=== PATIENT | female | born 1975 | race Caucasian/White ===

== ENCOUNTER 2019-02-11 12:53 | Emergency (ER) | payer OTHER ==
[2019-02-11 13:24] VITALS: BP 120/88; PULSE 88; TEMP 98; BMI 20.3
[2019-02-11] MEDS ORDERED: LIDOCAINE 5% TOPICAL PATCH TP ONE (13:49)
[2019-02-11] MEDS ORDERED: LIDOCAINE 5% TOPICAL PATCH ONE (13:52)
--- NOTE | 2019-02-11 13:54 | PDOC ---
Attending Attestation - Resident Resident Name: ChaparritaBryanna - ED Attending Attestation I have performed the following: I have examined & evaluated the patient, The case was reviewed & discussed with the resident, I agree w/resident's findings & plan - HPI HPI: 02/11/19 13:50 43 YOF with right shoulder pain x 1 day, worse with movement of her arm. she was holding door, when she slipped on wet leaves, pulled and felt a "popping " sensation. since then, minimally able to fully range her shoulder went to urgent care yesterday, xray unremarkable. has taken some ibuprofen with no relief. no weakness or paresthesias, AMS, head injury or LOC, CP, SOB or abdominal pain - Physicial Exam PE: 02/11/19 13:52 physical exam General: NAD, well appearing Resp: no respiratory distress, breathing comfortable on RA Abdomen: soft, no tenderness, nondistended Vascular: 2+ DP pulses symmetric and equal. Back: no midline tenderness, no stepoffs, FROM MSK: notable for soft compartments, Cap refill <2 sec. Proximal and distal strength 5/5, sweep press operator strength 5/5 - equal and symmetric. Plantar flexion and dorsiflexion 5/5. FROM. Sensation grossly intact to light touch. shoulder abduction/adduction/flexion/extension intact passively and prox strength 5/5 actively against resistance. 5/5 shoulder shrug strength. deltoid sensation intact; sensation grossly intact in median/radial/ulnar distribution. distal sweep press operator strength 5/5. 2+ radialis pulses bilaterally and symmetric. +very tender to palp over right upper shoulder, to supraspinatus muscle no crepitus or shoulder joint laxity. no ac joint tenderness. Neuro: alert, no focal neurologic deficits Skin: color normal color, warm and well perfused. Cap refill <2 sec. 02/11/19 13:53 - Medical Decision Making 02/11/19 13:52 MSK injury: \\ Vital Signs Temp Pulse Resp BP Pulse Ox 98.0 F 88 15 120/88 100 02/11/19 12:55 02/11/19 12:55 02/11/19 12:55 02/11/19 12:55 02/11/19 12:55 VS reviewed, wnl given analgesia here, reassess Xray rt shoulder normal joint space alignment, no acute fx or dislocation. CT shoulder given severe pain, eval for occult fx/AC separation and injury pattern, dislocation CT upper extremity negative for occult fracture, shoulder dislocation or acute pathology, there is mild degenerative arthritic changes in the AC joint. No soft tissue masses or fluid collection is noted, further evaluation for rotator cuff injury if symptoms persist with outpatient MRI/orthopedics referrals. Discussed results with patient. Rest ice and elevation. Pain control with OTC meds including motrin/tylenol as needed every 6 hours; no narcotics needed. Ortho followup provided for suspected rotator cuff injury. precautions given to avoid frozen shoulder, ROM exercises as tolerated. sling for comfort.. Please return to ED for increased pain, weakness, numbness/tingling, skin color changes 02/11/19 15:24 02/11/19 15:32
--- NOTE | 2019-02-11 14:42 | PDOC ---
History of Present Illness <Dolores Villatoro - Last Filed: 02/11/19 15:33> - General History Source: Patient Exam Limitations: No Limitations - History of Present Illness Initial Comments: 02/11/19 14:39 43y F with no significant PMH presenting to ED with complaints of R shoulder pain. Pt states that yesterday she was getting out of her car and almost slipped on the leaves outside. She grabbed on to the door and felt herself twist and immediately developed pain. She went to [facility] urgent care, got an xray which was negative for fracture. She was advised to follow up with ortho ( she has an appointment next Friday with Dr. Nguyễn?) and to take ibuprofen. Patient states that the pain is intense, she cannot find a comfortable position for her arm and is unable to sleep. Denies numbness/tingling, weakness, head injury, LOC. Allergies: epinepherine, Vicodin (vomiting). <Bryanna Cheatham - Last Filed: 02/11/19 15:47> - General Chief Complaint: Pain Stated Complaint: RIGHT SHOULDER/BACK PAIN Time Seen by Provider: 02/11/19 12:57 Past History <Dolores Villatoro - Last Filed: 02/11/19 15:33> - Past Medical History COPD: No - Immunization History Immunization Up to Date: Yes - Psycho Social/Smoking Cessation Hx Smoking History: Current some day smoker Have you smoked in the past 12 months: Yes Number of Cigarettes Smoked Daily: 0 Information on smoking cessation initiated: Yes 'Breaking Loose' booklet given: 04/16/13 Hx Alcohol Use: Yes (SOCIAL) Drug/Substance Use Hx: No Substance Use Type: None <Bryanna Cheatham - Last Filed: 02/11/19 15:47> - Past Medical History Allergies/Adverse Reactions: Allergies Allergy/AdvReac Type Severity Reaction Status Date / Time epinephrine Allergy Verified 02/11/19 13:02 hydrocodone AdvReac Severe Vomiting Verified 02/11/19 13:02 codeine AdvReac Vomiting Verified 02/11/19 13:02 Home Medications: Ambulatory Orders Cyclobenzaprine HCl 5 mg PO HS PRN 02/11/19 Ibuprofen 600 mg PO QID PRN #20 tablet 02/11/19 Oxycodone HCl 10 mg PO QID PRN #12 tablet MDD 4 02/11/19 Review of Systems - Review of Systems Constitutional: No: Symptoms Reported HEENTM: No: Symptoms Reported Respiratory: No: Symptoms reported Cardiac (ROS): No: Symptoms Reported ABD/GI: No: Symptoms Reported Musculoskeletal: Yes: See HPI Integumentary: No: Symptoms Reported Neurological: No: Numbness, Tingling, Weakness <Bryanna Cheatham - Last Filed: 02/11/19 15:47> *Physical Exam - Vital Signs Last Vital Signs Temp Pulse Resp BP Pulse Ox 98.0 F 88 15 120/88 100 02/11/19 12:55 02/11/19 12:55 02/11/19 12:55 02/11/19 12:55 02/11/19 12:55 <Dolores Villatoro - Last Filed: 02/11/19 15:33> - Vital Signs Last Vital Signs Temp Pulse Resp BP Pulse Ox 98.0 F 88 15 120/88 100 02/11/19 12:55 02/11/19 12:55 02/11/19 12:55 02/11/19 12:55 02/11/19 12:55 - Physical Exam General Appearance: Yes: Nourished, Appropriately Dressed, Moderate Distress HEENT: positive: EOMI, PAUL Respiratory/Chest: positive: Lungs Clear, Normal Breath Sounds. negative: Crackles, Rales, Rhonchi, Stridor, Wheezing Cardiovascular: positive: Regular Rhythm, Regular Rate, S1, S2. negative: Edema , JVD, Murmur Comments:: 02/11/19 15:41 radial pulses 2+ Musculoskeletal: positive: Decreased Range of Motion (R shoulder with decreased ROM with extension, adduction, abduction, flextion. TTP superior aspect of shoulder). negative: Vertebral Tenderness Extremity: positive: Normal Capillary Refill Integumentary: positive: Normal Color, Dry, Warm Neurologic: positive: gizzard peeler II-XII NML intact, Fully Oriented, Alert, Normal Mood/ Affect, Normal Response, Motor Strength 5/5 <Bryanna Cheatham - Last Filed: 02/11/19 15:47> ED Treatment Course - RADIOLOGY Radiology Studies Ordered: Category Date Time Status UPPER EXTREMITY CT W/O CONTR [CT] Stat CT Scan 02/11/19 13:49 Completed SHOULDER-RIGHT [RAD] Stat Radiology 02/11/19 13:05 Taken - Medications Given in the ED: ED Medications Discontinued Medications Generic Name Dose Route Start Last Admin Trade Name Freq PRN Reason Stop Dose Admin Lidocaine 1 patch 02/11/19 13:49 02/11/19 13:56 Lidoderm Patch - TP 02/11/19 13:50 1 patch ONCE ONE Administration Oxycodone/Acetaminophen 1 combo 02/11/19 13:06 02/11/19 13:18 Percocet 5/325 - PO 02/11/19 13:07 1 combo ONCE ONE Administration <Dolores Villatoro - Last Filed: 02/11/19 15:33> - Medications Given in the ED: ED Medications Discontinued Medications Generic Name Dose Route Start Last Admin Trade Name Freq PRN Reason Stop Dose Admin Lidocaine 1 patch 02/11/19 13:49 02/11/19 13:56 Lidoderm Patch - TP 02/11/19 13:50 1 patch ONCE ONE Administration Oxycodone/Acetaminophen 1 combo 02/11/19 13:06 02/11/19 13:18 Percocet 5/325 - PO 02/11/19 13:07 1 combo ONCE ONE Administration <Bryanna Cheatham - Last Filed: 02/11/19 15:47> Medical Decision Making - Medical Decision Making 02/11/19 15:42 43y F presenting with R shoulder pain. had xrays done yesterday, does not have images with her. negative for fractures yesterday however ananda obtain new films here. likely ligamentous injury of rotator cuff. low suspicion for fracture or dislocation. -percocet, lidoderm patch xrays negative for fractures. will obtain CT. 02/11/19 15:46 CT negative for occult fractures, dislocation. pain has improved slightly. will place patient in sling, referral to Dr. Ghotra , Dr. Mendez and Dr. Grande, will advise patient to go downstairs to get appointment if possible. Rx sent to pharmacy for pain. Dispo: home <Bryanna Cheatham - Last Filed: 02/11/19 15:47> Discharge - Discharge Information Problems reviewed: Yes - Admission No <Dolores Villatoro - Last Filed: 02/11/19 15:33> - Discharge Information Problems reviewed: Yes - Admission No <Bryanna Cheatham - Last Filed: 02/11/19 15:47> - Discharge Information Clinical Impression/Diagnosis: Supraspinatus sprain Qualifiers: Encounter type: initial encounter Laterality: right Qualified Code(s): S46.811A - Strain of other muscles, fascia and tendons at shoulder and upper arm level, right arm, initial encounter Condition: Good Disposition: HOME - Additional Discharge Information Prescriptions: Ibuprofen 600 mg PO QID PRN #20 tablet PRN Reason: Moderate Pain Oxycodone HCl 10 mg PO QID PRN #12 tablet MDD 4 PRN Reason: Severe Pain - Follow up/Referral Referrals: Bucky Ghotra MD [Staff Physician] - Adriel Mendez MD [Staff Physician] - Abhishek Grande MD [Staff Physician] - - Patient Discharge Instructions Patient Printed Discharge Instructions: DI for Rotator Cuff Injury Additional Instructions: You were seen in the emergency room today for shoulder pain. I think this is a rotator cuff injury. A prescription for pain medication was sent to your pharmacy, take as directed. Please go down to the orthopedist office here to see if they can set up an appointment for you. Keep your arm in the sling until assessed by an orthopedist. Come back to the emergency room for worsening pain, numbness or weakness of the arm or if any new or concerning symptom develops. Thank you - Post Discharge Activity Work/Back to School Note: Back to Work
== END 2019-02-11 15:40 | disposition home or self-care (01) ==
LOC: FER 12:53
DX: S46.811A Strain of other muscles, fascia and tendons at shoulder and upper arm level, right arm, initial encounter (principal); Z88.6 Allergy status to analgesic agent; Z88.8 Allergy status to other drugs, medicaments and biological substances; F17.210 Nicotine dependence, cigarettes, uncomplicated
CPT/HCPCS: 73030-TC-RT-FY; 73200-TC-RT; 81025; 99282-25